=== PATIENT | male | born 1945 | race Caucasian/White ===

== ENCOUNTER 2017-01-23 16:42 | Emergency (ER) | payer MEDICARE, BC, OTHER ==
[2017-01-23] MEDS ORDERED: Sodium Chloride 0.9% 10 ML Syringe FLUSH PRN ×2 (17:19→19:08)
[2017-01-23] MEDS ORDERED: Sodium Chloride 0.9% 1,000 ML IV ONE (17:19)
[2017-01-23] MEDS ORDERED: HYDROmorphone 0.5 MG/0.5 ML Syringe IVPUSH ONE (17:20)
[2017-01-23] MEDS ORDERED: Ondansetron 4 MG/2 ML SDV IVPUSH ONE (17:20)
[2017-01-23] MEDS ORDERED: Alum Hydrox/Mag Hydrox/Simeth 30 ML, Lidocaine 2% 15 ML PO ONE ×2 (17:21)
--- NOTE | 2017-01-23 17:27 | EDM.PDOC ---
ED HPI GI/ABDOMINAL - General Chief Complaint: Abdominal Pain Stated Complaint: HEAD PAIN, SORE EYES, ABDOMINAL PAIN Time Seen by Provider: 01/23/17 17:05 Source of Information: Reports: Patient History Limitations: Reports: No limitations - History of Present Illness INITIAL COMMENTS - FREE TEXT/NARRATIVE: Patient is a 71-year-old male who presents to the ED complaining of abdominal pain that started many months ago. States pain is described as a sharp sensation located to the periumbilical region that is constant with no radiation. Pain at its peak is a 9/10. Pain has been constant for quite some time with unclear etiology. He has been evaluated by his primary care provider and had a CT of the abdomen obtained. There were no abnormal findings present. He has had 2 episodes of emesis with no blood. He denies any nausea. Denies acid reflux. Denies any pain with urination. States he does have pain after having a bowel movement lasting approximately 2 hours afterwards. Bowel pattern has been normal, soft, formed, with no abnormal findings. Denies eating questional or bad food or recent out of country travel. Patient states he is a alcoholic and drinks 1 pint of whiskey a day. States last drink was yesterday. He denies any history of pancreatitis. In addition complains of a mild headache located to the frontal aspect of his head with no vision changes. Rated 5/10 bilaterally described as a throbbing sensation with no radiation. Does not consider it to be worse headache of his life. He's had no weakness, numbness or tingling, fever/chills, loss of vision , or recent head trauma. Again this is a chronic issue that has slightly worsened. Past medical history of coronary artery disease, stent placement, triple coronary artery bypass 1 year ago. HTN. GERD. He is an alcoholic and has not received inpatient treatment. Again he drinks approximately 1 pint of whiskey a day. He has no history for pancreatitis. Current Medications: Enalapril Maleate 10 mg PO DAILY FA/Lycopene/Lut/MV,Ca,Iron,Min [Centrum] 1 tab PO DAILY LORazepam [Ativan] 1 mg PO ASDIRECTED PRN Meloxicam [Mobic] 15 mg PO DAILY #10 tab Metoprolol Tartrate [Lopressor] 50 mg PO BID ] Nitroglycerin [Nitrostat] 0.4 mg PO ASDIRECTED PRN Pantoprazole [ProTONIX] 40 mg PO DAILY Simvastatin [Zocor] 40 mg PO BEDTIME Sucralfate [Carafate] 1 gm PO BID amLODIPine [Norvasc] 10 mg PO DAILY Aspirin [Nata Chewable Aspirin] 81 mg PO DAILY Timing/Duration: Reports: Constant, Waxing/waning Location: periumbilical Quality: Reports: ache Severity: moderate Worsens with: Reports: palpation Context: Denies: sick contact, bad/questionable food, out of country travel, recent surgery, recent trauma, lifting, activity/exercise Associated Symptoms: Reports: loss of appetite. Denies: chest pain, back pain, testicular pain, groin pain, shoulder pain, constipation, diarrhea, bloody stools, fever/chills, malaise, nausea/vomiting Treatments PATIENT ACCOUNTS SPECIALIST: Reports: Other (see below) (None stated) - Related Data Allergies/ADRs: Allergies Allergy/AdvReac Type Severity Reaction Status Date / Time No Known Allergies Allergy Verified 01/23/17 16:56 Home Meds: Home Meds Enalapril Maleate 10 mg PO DAILY 06/21/14 [History] FA/Lycopene/Lut/MV,Ca,Iron,Min [Centrum] 1 tab PO DAILY 06/21/14 [History] LORazepam [Ativan] 1 mg PO ASDIRECTED PRN 06/21/14 [History] Meloxicam [Mobic] 15 mg PO DAILY #10 tab 06/21/14 [Rx] Metoprolol Tartrate [Lopressor] 50 mg PO BID 06/21/14 [History] Nitroglycerin [Nitrostat] 0.4 mg PO ASDIRECTED PRN 06/21/14 [History] Pantoprazole [ProTONIX] 40 mg PO DAILY 06/21/14 [History] Simvastatin [Zocor] 40 mg PO BEDTIME 06/21/14 [History] Sucralfate [Carafate] 1 gm PO BID 06/21/14 [History] amLODIPine [Norvasc] 10 mg PO DAILY 06/21/14 [History] Aspirin [Nata Chewable Aspirin] 81 mg PO DAILY 11/16/15 [History] Past Medical History Cardiovascular History: Reports: Bypass, Hypertension, Stents Other Cardiovascular History: Oct 15, 2012 Gastrointestinal History: Reports: GERD Musculoskeletal History: Reports: Arthritis Psychiatric History: Reports: Addiction Social & Family History - Family History Family Medical History: Noncontributory - Tobacco Use Smoking Status *Q: Former Smoker Years of Tobacco use: 28 Packs/Tins Daily: 1.5 Used Tobacco, but Quit: Yes Month Tobacco Last Used: 09/1991 - Caffeine Use Caffeine Use: Reports: Coffee - Alcohol Use Days Per Week of Alcohol Use: 7 Number of Drinks Per Day: 4 Total Drinks Per Week: 28 - Recreational Drug Use Recreational Drug Use: No ED ROS GENERAL - Review of Systems Review Of Systems: See Below Constitutional: Denies: fever, chills, decreased appetite Respiratory: Denies: Shortness of Breath, Cough, Sputum Cardiovascular: Denies: Chest pain, Lightheadedness, Palpitations, Syncope GI/Abdominal: Reports: Abdominal pain. Denies: Black stool, Bloody stool, Constipation, Diarrhea, Distension, Hematemesis, Hematochezia, Melena, Nausea : Denies: dysuria, frequency Musculoskeletal: Reports: back pain Neurological: Reports: No Symptoms ED EXAM, GI/ABD - Physical Exam Exam: See Below Exam Limited By: No limitations General Appearance: alert, WD/WN, anxious Eyes: bilateral: normal appearance Ears: hearing grossly normal Throat/Mouth: Normal inspection, Normal oropharynx, Normal voice, No airway compromise Neck: normal inspection, supple. No: lymphadenopathy (L), lymphadenopathy (R) Respiratory/Chest: no respiratory distress, lungs clear, normal breath sounds, no accessory muscle use, chest non-tender Cardiovascular: normal peripheral pulses, regular rate, rhythm, no murmur, other (negative claudication) GI/Abdominal: normal bowel sounds, soft, no organomegaly, no distention, tenderness (mild periumbilical area). No: McBurney's sign, Cervantes's sign Back Exam: normal inspection. No: CVA tenderness (L), CVA tenderness (R) Extremities: No: leg pain Neurological: alert, oriented, CN II-XII intact, normal cognition, no motor/ sensory deficits Psychiatric: normal affect, normal mood Skin Exam: Warm, Dry, Intact, Normal color Course - Vital Signs Last Recorded V/S: Last Vital Signs Temp 97.5 F 01/23/17 17:03 Pulse 80 01/23/17 20:56 Resp 16 01/23/17 20:56 BP 130/71 01/23/17 20:56 Pulse Ox 95 01/23/17 20:56 - Orders/Labs/Meds Orders: Active Orders 24 hr Category Date Time Status Peripheral IV Care [RC] . DIRECTED Care 01/23/17 17:19 Active Abdomen Pelvis w Cont [CT] Stat Exams 01/23/17 17:19 Taken Peripheral IV Insertion Adult [OM.PC] Stat Oth 01/23/17 17:19 Ordered Labs: Laboratory Tests 01/23/17 01/23/17 01/23/17 Range/Units 17:47 17:55 17:55 WBC 5.23 (4.23-9.07) K/mm3 RBC 4.25 L (4.63-6.08) M/mm3 Hgb 14.3 (13.7-17.5) gm/L Hct 42.4 (40.1-51.0) % MCV 99.8 H (79.0-92.2) fl MCH 33.6 H (25.7-32.2) pg MCHC 33.7 (32.2-35.5) g/dl RDW Std Deviation 43.2 (35.1-43.9) fL Plt Count 170 (163-337) K/mm3 MPV 10.1 (9.4-12.3) fl Neut % (Auto) 45.6 (34.0-67.9) % Lymph % (Auto) 33.5 (21.8-53.1) % [place] % (Auto) 17.6 H (5.3-12.2) % Eos % (Auto) 2.9 (0.8-7.0) Baso % (Auto) 0.4 (0.1-1.2) % Neut # (Auto) 2.39 (1.78-5.38) K/mm3 Lymph # (Auto) 1.75 (1.32-3.57) K/mm3 [place] # (Auto) 0.92 H (0.30-0.82) K/mm3 Eos # (Auto) 0.15 (0.04-0.54) K/mm3 Baso # (Auto) 0.02 (0.01-0.08) K/mm3 Manual Slide Review Abnormal smear Sodium 141 (136-145) mEq/L Potassium 3.7 (3.5-5.1) mEq/L Chloride 104 (98-107) mEq/L Carbon Dioxide 25 (21-32) mEq/L Anion Gap 15.7 H (5-15) BUN 14 (7-18) mg/dL Creatinine 1.2 (0.7-1.3) mg/dL Est Cr Clr Drug Dosing 59.14 mL/min Estimated GFR (MDRD) 60 (>60) mL/min BUN/Creatinine Ratio 11.7 L (14-18) Glucose 68 L (80-115) mg/dL Calcium 9.0 (8.5-10.1) mg/dL Total Bilirubin 0.7 (0.2-1.0) mg/dL AST 60 H (15-37) U/L ALT 51 (16-63) U/L Alkaline Phosphatase 84 (46-116) U/L C-Reactive Protein 0.3 (<1.0) mg/dL Total Protein 7.6 (6.4-8.2) g/dl Albumin 4.1 (3.4-5.0) g/dl Globulin 3.5 gm/dL Albumin/Globulin Ratio 1.2 (1-2) Lipase 285 (73-393) U/L Urine Color Yellow (Yellow) Urine Appearance Slt cloudy H (Clear) Urine pH 7.0 (5.0-8.0) Ur Specific [place] 1.020 (1.005-1.030) Urine Protein Negative (Negative) Urine Glucose (UA) Negative (Negative) Urine Ketones 1+ H (Negative) Urine Occult Blood Negative (Negative) Urine Nitrite Negative (Negative) Urine Bilirubin Negative (Negative) Urine Urobilinogen 0.2 (0.2-1.0) Ur Leukocyte Esterase Negative (Negative) Urine RBC Not seen (0-5) /hpf Urine WBC 0-5 (0-5) /hpf Ur Epithelial Cells 0-5 (0-5) /hpf Urine Bacteria Rare (FEW) /hpf Hyaline Casts 0-5 (0-5) /lpf Urine Mucus Few (FEW) /hpf Ethyl Alcohol 0.03 (0.00) gm% Meds: Medications Discontinued Medications Generic Name Dose Route Start Last Admin Trade Name Freq PRN Reason Stop Dose Admin Al Hydroxide/Mg Hydroxide 30 0 ml 01/23/17 17:21 01/23/17 18:04 ml/ Lidocaine HCl 15 ml PO 01/23/17 17:22 45 ml ONETIME ONE Administration Diatrizoate Meglum/Diatrizoate Sod 90 ml 01/23/17 19:08 01/23/17 19:26 Gastrografin 37% PO 01/23/17 19:09 90 ml ONETIME ONE Administration Hydromorphone HCl 0.25 mg 01/23/17 17:20 01/23/17 18:02 Dilaudid IVPUSH 01/23/17 17:21 0.25 mg ONETIME ONE Administration Sodium Chloride 1,000 mls @ 125 mls/hr 01/23/17 17:19 01/23/17 17:59 Normal Saline IV 01/24/17 01:18 125 mls/hr ONETIME ONE Administration Iopamidol 125 ml 01/23/17 19:08 01/23/17 19:27 Isovue-300 (61%) IVPUSH 01/23/17 19:09 125 ml ONETIME ONE Administration Ondansetron HCl 4 mg 01/23/17 17:20 01/23/17 18:00 Zofran IVPUSH 01/23/17 17:21 4 mg ONETIME ONE Administration Ondansetron HCl Confirm 01/23/17 17:58 01/23/17 18:15 Zofran Administered 01/23/17 17:59 Not Given Dose 4 mg .ROUTE .STK-MED ONE Sodium Chloride 10 ml 01/23/17 17:19 01/23/17 18:06 Saline Flush FLUSH 10 ml ASDIRECTED PRN Administration Keep Vein Open Sodium Chloride 10 ml 01/23/17 19:08 01/23/17 19:27 Saline Flush FLUSH 10 ml ONETIME PRN Administration IV FLUSH - Re-Assessments/Exams Free Text/Narrative Re-Assessment/Exam: Order peripheral IV with normal saline, Dilaudid 0.25 mg IVP, Zofran 4 mg IVP, CBC, chem 14, CRP, EtOH, lipase, UA, abdominal CT with oral and IV contrast, and GI cocktail. 01/23/17 18:34 Labs reviewed: CBC essentially normal. Sodium 141, potassium 3.7 , AG 15.7 glucose 60, AST 60, lipase 285, UA negative for infection. Serum EtOH is 0.03. 01/23/17 20:15 CT of the abdomen and pelvis impression: There is severe fatty liver replacement. 01/23/17 20:[address] abdomen and pelvis with contrast to patient. He is aware he is severe fatty liver replacement. This is secondary to chronic alcohol consumption. Patient reiterates he does not feel well and does not want to go home. Patient is pointing to stomach complaining of worsening pain. Pain has been constant for many months. Only known aggravating factor is palpation. No changes noted with eating. Patient did not have any relief with Dilaudid and GI cocktail. Patient's also had a colonoscopy one year ago for abdominal pain with no abnormal findings. Discussed with him labs and a CT study did not show any acute findings. Thus will have the patient follow up with his primary care provider for further evaluation. Departure - Departure Time of Disposition: 20:36 Disposition: Home, Self-Care 01 Condition: good Clinical Impression: Alcoholism /alcohol abuse Abdominal pain Qualifiers: Abdominal location: periumbilical Qualified Code(s): R10.33 - Periumbilical pain Instructions: Abdominal Pain, Adult, [id number], Alcohol Abuse and Nutrition Referrals: Gurdeep Valadez Jr, MD [Primary Care Provider] - Forms: ED Department Discharge Additional Instructions: As discussed CT of the abdomen and pelvis do not reveal any acute findings. Lab work also did not reveal any concerning findings as well. Will have you see your primary care provider in the next 2 days to 3 days for reevaluation. Quit drinking. Push the fluids. Ensure adequate rest. Eat three balance meals daily. Return to the E.D. for any new or worsening symptoms. - My Orders Last 24 Hours: My Active Orders 01/23/17 17:19 Peripheral IV Care [RC] . DIRECTED Abdomen Pelvis w Cont [CT] Stat Peripheral IV Insertion Adult [OM.PC] Stat - Assessment/Plan Last 24 Hours: My Active Orders 01/23/17 17:19 Peripheral IV Care [RC] . DIRECTED Abdomen Pelvis w Cont [CT] Stat Peripheral IV Insertion Adult [OM.PC] Stat
[2017-01-23] MEDS ORDERED: Ondansetron 4 MG/2 ML SDV ONE (17:58)
[2017-01-23] MEDS ORDERED: Diatrizoate Meglumine/Diatrizoate Sodium 37% 120 ML Bottle PO ONE (19:08)
[2017-01-23] MEDS ORDERED: Iopamidol 612 MG/ML 150 ML Bottle IVPUSH ONE (19:08)
[2017-01-23 20:57] VITALS: BP 130/71
--- NOTE | 2017-01-24 10:04 | CT ---
CT abdomen and pelvis Technique: Multiple axial sections were obtained from above the dome of the diaphragm inferiorly through the pubic symphysis. Intravenous and oral contrast was utilized. Delayed images were obtained through the bladder. Comparison: No previous CT exam, previous right upper quadrant abdominal ultrasound of 10/19/11 is available. Findings: Visualized lung bases show nothing acute. Liver shows diffuse fatty infiltration. Adrenal glands show no nodule. Kidneys show symmetric contrast enhancement without hydronephrosis or mass. Spleen size appears within normal limits. Pancreas is within normal limits. Gallbladder shows no calcified gallstones. Aorta shows atherosclerotic change which continues into the iliac vessels. No aneurysm is seen. No retroperitoneal adenopathy or mesenteric abnormalities are seen. Numerous diverticuli seen within the sigmoid colon without diverticulitis. Delayed images show contrast within the distal ureters and within the bladder. Bone window settings were reviewed which show scattered degenerative changes throughout the spine with disc space narrowing, vacuum phenomena and scattered endplate osteophytes. Impression: 1. Diffuse fatty infiltration within the liver. 2. Other incidental findings. Nothing acute is identified on CT study of the abdomen and pelvis. Diagnostic code #2 I agree with preliminary report issued by [facility] (report finalized on 01/23/17, 8:54 PM Central Time)
== END 2017-01-23 20:45 | disposition home or self-care (01) ==
LOC: JD.ED 16:42
DX: R10.33 Periumbilical pain (principal); F10.20 Alcohol dependence, uncomplicated; I25.118 Atherosclerotic heart disease of native coronary artery with other forms of angina pectoris; I10 Essential (primary) hypertension; K21.9 Gastro-esophageal reflux disease without esophagitis; Z95.5 Presence of coronary angioplasty implant and graft; Z95.1 Presence of aortocoronary bypass graft; Z79.899 Other long term (current) drug therapy; Z87.891 Personal history of nicotine dependence
CPT/HCPCS: 36415; 74177; 80053; 81001; 83690; 85025; 86140; 96361; 96374; 96375; 99284; A9270; G0480; J1170; J2405; J7040; J7050; Q9963; Q9967

== ENCOUNTER 2017-04-30 07:26 | Emergency (ER) | payer MEDICARE, BC ==
[2017-04-30] MEDS ORDERED: Ondansetron 4 MG/2 ML SDV IVPUSH ONE (07:49)
[2017-04-30] MEDS ORDERED: fentaNYL 100 MCG/2 ML SDV IVPUSH ONE (07:49)
--- NOTE | 2017-04-30 07:53 | EDM.PDOC ---
ED HPI GENERAL MEDICAL PROBLEM - General Chief Complaint: Chest Pain Stated Complaint: CHEST PAIN Time Seen by Provider: 04/30/17 07:48 Source of Information: Reports: Patient History Limitations: Reports: No Limitations - History of Present Illness INITIAL COMMENTS - FREE TEXT/NARRATIVE: 71-year-old male presents the ED for evaluation of right anterior chest pain. States came on a few hours ago and is described as a pressure discomfort versus sharp and stabbing. 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 He does not feel any worse as far shortness of breath. Denies cough fever chills nausea or vomiting. O2 sats on room air are 96%. He is mildly hypertensive and appears quite anxious at initial time of visit. He reports he did not sleep all night suspected did not provide really an explanation as to why not. Onset: Today Onset Date: 04/30/17 Duration: Hour(s): Location: Reports: Chest (Right precordial chest.) Quality: Reports: Ache, Pressure Severity: Moderate Improves with: Reports: None Worsens with: Reports: None Context: Denies: Activity, Exercise, Lifting, Sick Contact, Trauma, Other Associated Symptoms: Reports: Chest Pain. Denies: No Other Symptoms, Confusion (See history present illness), Cough, cough w sputum, Diaphoresis, Fever/Chills , Headaches, Loss of Appetite, Malaise, Nausea/Vomiting, Rash, Seizure, Shortness of Breath, Syncope Chest Pain Score (Numeric/FACES): 2 - Related Data Allergies Allergy/AdvReac Type Severity Reaction Status Date / Time No Known Allergies Allergy Verified 04/30/17 07:36 Home Meds: Home Meds Enalapril Maleate 10 mg PO DAILY 06/21/14 [History] FA/Lycopene/Lut/MV,Ca,Iron,Min [Centrum] 1 tab PO DAILY 06/21/14 [History] LORazepam [Ativan] 1 mg PO ASDIRECTED PRN 06/21/14 [History] Meloxicam [Mobic] 15 mg PO DAILY #10 tab 06/21/14 [Rx] Metoprolol Tartrate [Lopressor] 50 mg PO BID 06/21/14 [History] Nitroglycerin [Nitrostat] 0.4 mg PO ASDIRECTED PRN 06/21/14 [History] Pantoprazole [ProTONIX] 40 mg PO DAILY 06/21/14 [History] Simvastatin [Zocor] 40 mg PO BEDTIME 06/21/14 [History] Sucralfate [Carafate] 1 gm PO BID 06/21/14 [History] amLODIPine [Norvasc] 10 mg PO DAILY 06/21/14 [History] Aspirin [Nata Chewable Aspirin] 81 mg PO DAILY 11/16/15 [History] Gluc Ochoa/Chondro Ochoa A/Vit C/Mn [Glucosamine-Chondroitin Cap] 1 tab PO DAILY 04/30 [History] Past Medical History HEENT History: Reports: Other (See Below) Other HEENT History: dry eyes Cardiovascular History: Reports: Bypass, Hypertension, [place], Stents Other Cardiovascular History: Oct 15, 2012 Gastrointestinal History: Reports: GERD Musculoskeletal History: Reports: Arthritis Psychiatric History: Reports: Addiction Social & Family History - Family History Family Medical History: Noncontributory - Tobacco Use Smoking Status *Q: Former Smoker Years of Tobacco use: 28 Packs/Tins Daily: 1.5 Used Tobacco, but Quit: Yes Month Tobacco Last Used: 25 years ago - Caffeine Use Caffeine Use: Reports: Soda - Alcohol Use Days Per Week of Alcohol Use: 7 Number of Drinks Per Day: 4 Total Drinks Per Week: 28 - Recreational Drug Use Recreational Drug Use: No - Living Situation & Occupation Living situation: Reports: Occupation: Employed ED ROS GENERAL - Review of Systems Review Of Systems: See Below Constitutional: Denies: Fever, Chills, Malaise, Weakness, Fatigue, Decreased Appetite, Weight Loss HEENT: Reports: No Symptoms Respiratory: Reports: No Symptoms Cardiovascular: Reports: Chest Pain. Denies: Claudication, Dyspnea on Exertion , Edema, Lightheadedness, Orthopnea, Palpitations, PND Endocrine: Reports: No Symptoms GI/Abdominal: Reports: Abdominal Pain (Patient complains of midline abdominal pain after having a bowel movement usually last about 2 hours after the passage of a normal formed stool.) : Reports: No Symptoms Musculoskeletal: Reports: No Symptoms Skin: Reports: No Symptoms Neurological: Reports: No Symptoms ED EXAM, GENERAL - Physical Exam Exam: See Below (Patient complains of midline abdominal pain after having a bowel movement usually last about 2 hours after the passage of a normal formed stool. Unable to explain this.) Exam Limited By: No Limitations General Appearance: Alert, WD/WN, No Apparent Distress, Anxious, Mild Distress Eye Exam: Bilateral Eye: Normal Inspection Head: Atraumatic, Normocephalic Neck: Normal Inspection, Supple, Non-Tender, Full Range of Motion. No: Carotid Bruit, Lymphadenopathy (L), Lymphadenopathy (R) Respiratory/Chest: No Respiratory Distress, Lungs Clear, Normal Breath Sounds, No Accessory Muscle Use Cardiovascular: Normal Peripheral Pulses, Regular Rate, Rhythm, No Edema, No Murmur GI/Abdominal: Normal Bowel Sounds, Soft, Non-Tender, No Distention, Other (No obvious umbilical hernia on palpation.) Extremities: Normal Inspection, Normal Range of Motion, Non-Tender, No Pedal Edema, Normal Capillary Refill Neurological: Alert, Oriented, CN II-XII Intact, Normal Cognition, Normal Gait Psychiatric: Normal Affect, Normal Mood Skin Exam: Warm, Dry, Intact, Normal Color, No Rash Course - Vital Signs Last Recorded V/S: Last Vital Signs Temp 36.4 C 04/30/17 07:31 Pulse 72 04/30/17 07:31 Resp 16 04/30/17 07:31 BP 141/89 H 04/30/17 07:31 Pulse Ox 96 04/30/17 07:31 - Orders/Labs/Meds Orders: Active Orders 24 hr Category Date Time Status EKG Documentation Completion [RC] STAT Care 04/30/17 07:50 Active Sodium Chloride 0.9% [Normal Saline] 1,000 ml Med 04/30/17 08:00 Active IV ASDIRECTED Medication Orders Sodium Chloride (Normal Saline) 1,000 mls @ 100 mls/hr IV ASDIRECTED RACHAEL Last Admin: 04/30/17 08:15 Dose: 100 mls/hr Labs: Laboratory Tests 04/30/17 04/30/17 04/30/17 Range/Units 07:50 07:50 07:50 WBC 4.51 (4.23-9.07) K/mm3 RBC 4.46 L (4.63-6.08) M/mm3 Hgb 15.2 (13.7-17.5) gm/L Hct 44.6 (40.1-51.0) % MCV 100.0 H (79.0-92.2) fl MCH 34.1 H (25.7-32.2) pg MCHC 34.1 (32.2-35.5) g/dl RDW Std Deviation 44.1 H (35.1-43.9) fL Plt Count 156 L (163-337) K/mm3 MPV 10.0 (9.4-12.3) fl Neutrophils % (Manual) 63 H (40-60) % Band Neutrophils % 0 (0-10) % Lymphocytes % (Manual) 30 (20-40) % Atypical Lymphs % 0 % Monocytes % (Manual) 6 (2-10) % Eosinophils % (Manual) 1 (0.8-7.0) % Basophils % (Manual) 0 L (0.2-1.2) Platelet Estimate Adequate RBC Morph Comment Normal PT 10.1 (8.0-13.0) SECONDS INR 0.93 D-Dimer, Quantitative (0.19-0.59) mg/L Sodium 141 (136-145) mEq/L Potassium 4.2 (3.5-5.1) mEq/L Chloride 102 (98-107) mEq/L Carbon Dioxide 25 (21-32) mEq/L Anion Gap 18.2 H (5-15) BUN 11 (7-18) mg/dL Creatinine 1.0 (0.7-1.3) mg/dL Est Cr Clr Drug Dosing TNP Estimated GFR (MDRD) > 60 (>60) mL/min BUN/Creatinine Ratio 11.0 L (14-18) Glucose 105 (80-115) mg/dL Calcium 9.2 (8.5-10.1) mg/dL Total Bilirubin 1.1 H (0.2-1.0) mg/dL AST 102 H (15-37) U/L ALT 83 H (16-63) U/L Alkaline Phosphatase 88 (46-116) U/L CK-MB (CK-2) 1.0 (0-3.6) ng/ml Troponin I < 0.017 (0.00-0.056) ng/mL C-Reactive Protein < 0.2 (<1.0) mg/dL Total Protein 7.7 (6.4-8.2) g/dl Albumin 4.3 (3.4-5.0) g/dl Globulin 3.4 gm/dL Albumin/Globulin Ratio 1.3 (1-2) /08/17 Range/Units 07:50 WBC (4.23-9.07) K/mm3 RBC (4.63-6.08) M/mm3 Hgb (13.7-17.5) gm/L Hct (40.1-51.0) % MCV (79.0-92.2) fl MCH (25.7-32.2) pg MCHC (32.2-35.5) g/dl RDW Std Deviation (35.1-43.9) fL Plt Count (163-337) K/mm3 MPV (9.4-12.3) fl Neutrophils % (Manual) (40-60) % Band Neutrophils % (0-10) % Lymphocytes % (Manual) (20-40) % Atypical Lymphs % % Monocytes % (Manual) (2-10) % Eosinophils % (Manual) (0.8-7.0) % Basophils % (Manual) (0.2-1.2) Platelet Estimate RBC Morph Comment PT (8.0-13.0) SECONDS INR D-Dimer, Quantitative 1.09 H (0.19-0.59) mg/L Sodium (136-145) mEq/L Potassium (3.5-5.1) mEq/L Chloride (98-107) mEq/L Carbon Dioxide (21-32) mEq/L Anion Gap (5-15) BUN (7-18) mg/dL Creatinine (0.7-1.3) mg/dL Est Cr Clr Drug Dosing Estimated GFR (MDRD) (>60) mL/min BUN/Creatinine Ratio (14-18) Glucose (80-115) mg/dL Calcium (8.5-10.1) mg/dL Total Bilirubin (0.2-1.0) mg/dL AST (15-37) U/L ALT (16-63) U/L Alkaline Phosphatase (46-116) U/L CK-MB (CK-2) (0-3.6) ng/ml Troponin I (0.00-0.056) ng/mL C-Reactive Protein (<1.0) mg/dL Total Protein (6.4-8.2) g/dl Albumin (3.4-5.0) g/dl Globulin gm/dL Albumin/Globulin Ratio (1-2) Meds: Medications Generic Name Dose Route Start Last Admin Trade Name Freq PRN Reason Stop Dose Admin Sodium Chloride 1,000 mls @ 100 mls/hr 04/30/17 08:00 04/30/17 08:15 Normal Saline IV 100 mls/hr ASDIRECTED RACHAEL Administration Discontinued Medications Generic Name Dose Route Start Last Admin Trade Name Teja PRN Reason Stop Dose Admin Fentanyl 50 mcg 04/30/17 07:49 Sublimaze IVPUSH 04/30/17 07:50 ONETIME ONE Ondansetron HCl 4 mg 04/30/17 07:49 Zofran IVPUSH 04/30/17 07:50 ONETIME ONE - Radiology Interpretation Free Text/Narrative:: 71-year-old male presents the ED with diffuse right. Anterior chest pain which she described as slight pressure discomfort. Patient has left precordial chest pain all the time since he had open heart surgery with use of internal mammary artery for grafting. However he doesn't experience right-sided chest pain very often. Exam is otherwise normal. Sinus rhythm normal vitals lungs are clear. Plan ECG done by triage nurse is unchanged from one done in October 2015. Patient had a Cardiolite stress test in January 2016 and Anaid can stress test at the same time which did not show any signs of reversible ischemia. Plan IV normal saline at 100 mils per hour. Given phenyl 50 g IV with Zofran 4 mg IV for pain relief. Routine labs to be collected including cardiac markers and a d- dimer and CRP. - Re-Assessments/Exams Free Text/Narrative Re-Assessment/Exam: 04/30/17 08:31 chest x-ray reveals hyperinflated lung mccartney but visualized lungs are clear cardiac silhouette is normal. 04/30/17 10:08 labs reveal a normal white count at 4.51 with 63% neutrophils and no bands. Hemoglobin is 15.2. Platelet is 156,000. Note the elevated MCV at 100 suggestive of probable alcohol use. Coags are normal. D-dimer is mildly elevated at 1.09. Sodium 141 potassium 4.2 and a gap is elevated 18.2. B1 is 11 creatinine is 1.0. He has a metabolic acidosis which I believe is likely alcohol -induced ketosis. Bilirubin is 1.1 AST is 1028 ELT elevated at 83. CRP is less than 0.2. We did review a CT of the abdomen and pelvis that was done several months ago. It does show a small fat-containing umbilical hernia which may explain his abdominal pain after having bowel movements. No further treatment is required at this time. His right-sided chest pain appears to be benign in origin. Departure - Departure Time of Disposition: 10:09 Disposition: Home, Self-Care 01 Condition: Fair Clinical Impression: Chest wall pain, Non-cardiac chest pain, Umbilical hernia Instructions: Chest Wall Pain, [id number] Referrals: Gurdeep Valadez Jr, MD [Primary Care Provider] - Forms: ED Department Discharge Additional Instructions: Evaluation in the emergency room today in regards to development of right-sided chest pain overnight. 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 Chest x-ray was within normal limits. Lab tests revealed no evidence of heart related illness. You're little bit on the dehydrated side and I would suggest extra fluids today such as Gatorade or Powerade to provide rehydration. As to pain you're experiencing umbilicus after bowel movement it appears on CT scan that you do have a small fat-containing umbilical hernia. If this continues to bother you then this could be repaired surgically. - My Orders Last 24 Hours: My Active Orders 04/30/17 07:50 EKG Documentation Completion [RC] STAT 04/30/17 08:00 Sodium Chloride 0.9% [Normal Saline] 1,000 ml IV ASDIRECTED - Assessment/Plan Last 24 Hours: My Active Orders 04/30/17 07:50 EKG Documentation Completion [RC] STAT 04/30/17 08:00 Sodium Chloride 0.9% [Normal Saline] 1,000 ml IV ASDIRECTED
[2017-04-30] MEDS ORDERED: Sodium Chloride 0.9% 1,000 ML IV SCH (08:00)
--- NOTE | 2017-04-30 10:46 | CR ---
Chest: Frontal view of the chest was obtained utilizing portable technique. Comparison: Previous chest x-ray of 11/16/15. Heart size is normal. Mild tortuosity of the thoracic aorta is seen. Lungs are clear. Scoliosis and degenerative change is partially seen within the spine. Previous sternotomy for CABG is seen. Impression: 1. Incidental findings. Nothing acute is identified on portable chest x-ray. Diagnostic code #2
[2017-04-30 18:16] VITALS: BP 125/79
== END 2017-04-30 10:40 | disposition home or self-care (01) ==
LOC: JD.ED 07:26
DX: R07.89 Other chest pain (principal); K42.9 Umbilical hernia without obstruction or gangrene; I10 Essential (primary) hypertension; I25.2 Old myocardial infarction; M19.90 Unspecified osteoarthritis, unspecified site; K21.9 Gastro-esophageal reflux disease without esophagitis; Z95.1 Presence of aortocoronary bypass graft; Z95.5 Presence of coronary angioplasty implant and graft; Z87.891 Personal history of nicotine dependence; Z79.82 Long term (current) use of aspirin; Z79.899 Other long term (current) drug therapy
CPT/HCPCS: 36415; 71010; 80053; 82553; 84484; 85025; 85379; 85610; 86140; 93005; 96360; 96361; 99285; J7040; 99284

== ENCOUNTER 2019-10-11 16:40 | Emergency (ER) | payer MEDICARE, BC ==
[2019-10-11] MEDS ORDERED: Sodium Chloride 0.9% 10 ML Syringe FLUSH PRN (17:01)
[2019-10-11 17:07] VITALS: BP 153/86; PULSE 85
[2019-10-11] MEDS ORDERED: Sodium Chloride 0.9% 1,000 ML IV SCH (17:15)
--- NOTE | 2019-10-11 17:22 | EDM.PDOC ---
ED HPI GENERAL MEDICAL PROBLEM - General Chief Complaint: General Stated Complaint: FELL TWICE/LIGHTHEADED Time Seen by Provider: 10/11/19 16:59 Source of Information: Reports: Patient, RN Notes Reviewed - History of Present Illness INITIAL COMMENTS - FREE TEXT/NARRATIVE: 74-year-old male comes in with left facial contusion, left elbow contusion as post fall yesterday and also today before. He states that he was intoxicated at the time of those falls, does not really remember what happened. Today he is aware that he has extensive bruising of his left face, has discomfort around the left eye and also has swelling and discomfort left elbow. He did have some mild chest discomfort a but no discomfort at this time. He is not short of breath or having any difficulty breathing. He is very mild left frontal headache only. There's been no abdominal pain nausea or vomiting. He drinks whiskey about every day. No alcohol ingestion so far today. 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 Head Pain Score (Numeric/FACES): 6 - Related Data Allergies Allergy/AdvReac Type Severity Reaction Status Date / Time No Known Allergies Allergy Verified 04/30/17 07:36 Home Meds: Home Meds Enalapril Maleate 10 mg PO DAILY 06/21/14 [History] FA/Lycopene/Lut/MV,Ca,Iron,Min [Centrum] 1 tab PO DAILY 06/21/14 [History] LORazepam [Ativan] 1 mg PO ASDIRECTED PRN 06/21/14 [History] Meloxicam [Mobic] 15 mg PO DAILY #10 tab 06/21/14 [Rx] Metoprolol Tartrate [Lopressor] 50 mg PO BID 06/21/14 [History] Nitroglycerin [Nitrostat] 0.4 mg PO ASDIRECTED PRN 06/21/14 [History] Pantoprazole [ProTONIX] 40 mg PO DAILY 06/21/14 [History] Simvastatin [Zocor] 40 mg PO BEDTIME 06/21/14 [History] Sucralfate [Carafate] 1 gm PO BID 06/21/14 [History] amLODIPine [Norvasc] 10 mg PO DAILY 06/21/14 [History] Aspirin [Nata Chewable Aspirin] 81 mg PO DAILY 11/16/15 [History] Gluc Ochoa/Chondro Ochoa A/Vit C/Mn [Glucosamine-Chondroitin Cap] 1 tab PO DAILY 04/30 [History] Past Medical History HEENT History: Reports: Other (See Below) Other HEENT History: dry eyes Cardiovascular History: Reports: Bypass, Hypertension, [place], Stents Other Cardiovascular History: Oct 15, 2012 Gastrointestinal History: Reports: GERD Musculoskeletal History: Reports: Arthritis Psychiatric History: Reports: Addiction Social & Family History - Family History Family Medical History: Noncontributory - Tobacco Use Smoking Status *Q: Former Smoker Used Tobacco, but Quit: Yes Month/Year Tobacco Last Used: 27 - Caffeine Use Caffeine Use: Reports: Coffee - Recreational Drug Use Recreational Drug Use: No - Living Situation & Occupation Living situation: Reports: Occupation: Employed ED ROS GENERAL - Review of Systems Review Of Systems: See Below HEENT: Reports: Other (Left facial pain and bruising). Denies: Throat Pain Respiratory: Denies: Shortness of Breath, Pleuritic Chest Pain Cardiovascular: Denies: Chest Pain GI/Abdominal: Denies: Abdominal Pain, Nausea, Vomiting Musculoskeletal: Reports: Joint Pain (Left elbow) Skin: Reports: Bruising (Left face) Neurological: Reports: Headache (Mild left frontal). Denies: Numbness, Tingling , Trouble Speaking, Weakness ED EXAM, GENERAL - Physical Exam Exam: See Below General Appearance: Alert, No Apparent Distress Ears: Normal External Exam Nose: Normal Inspection Throat/Mouth: Normal Inspection, Normal Oropharynx Head: Facial Swelling (Mild swelling bruising and tenderness around the left eye , very mild left zygomatic tenderness) Respiratory/Chest: No Respiratory Distress, Lungs Clear, Normal Breath Sounds, Chest Non-Tender Cardiovascular: Regular Rate, Rhythm GI/Abdominal: Soft, Non-Tender Back Exam: No: CVA Tenderness (L), CVA Tenderness (R) Extremities: Joint Swelling (There is mild swelling and tenderness of the left elbow medially laterally and posteriorly, mild pain with motion, shoulders, upper and lower extremities otherwise nontender) Neurological: Alert, Oriented, No Motor/Sensory Deficits Skin Exam: Warm, Dry, Normal Color Course - Vital Signs Last Recorded V/S: Last Vital Signs Temp 98.9 F 10/11/19 17:03 Pulse 85 10/11/19 17:03 Resp 20 10/11/19 17:03 BP 153/86 H 10/11/19 17:03 Pulse Ox 94 L 10/11/19 17:03 - Orders/Labs/Meds Orders: Active Orders 24 hr Category Date Time Status Peripheral IV Care [RC] . DIRECTED Care 10/11/19 17:01 Active Sodium Chloride 0.9% [Normal Saline] 1,000 ml Med 10/11/19 17:15 Active IV ONETIME Sodium Chloride 0.9% [Saline Flush] Med 10/11/19 17:01 Active 10 ml FLUSH ASDIRECTED PRN Peripheral IV Insertion Adult [OM.PC] Stat Oth 10/11/19 17:01 Ordered Medication Orders Sodium Chloride (Normal Saline) 1,000 mls @ 999 mls/hr IV ONETIME RACHAEL Last Admin: 10/11/19 17:13 Dose: 999 mls/hr Sodium Chloride (Saline Flush) 10 ml FLUSH ASDIRECTED PRN PRN Reason: Keep Vein Open Last Admin: 10/11/19 17:13 Dose: 10 ml Labs: Laboratory Tests 10/11/19 10/11/19 Range/Units 17:10 17:10 WBC 8.80 (4.23-9.07) K/mm3 RBC 4.00 L (4.63-6.08) M/mm3 Hgb 14.0 (13.7-17.5) gm/dl Hct 41.7 (40.1-51.0) % MCV 104.3 H D (79.0-92.2) fl MCH 35.0 H (25.7-32.2) pg MCHC 33.6 (32.2-35.5) g/dl RDW Std Deviation 44.7 H (35.1-43.9) fL Plt Count 130 L (163-337) K/mm3 MPV 10.5 (9.4-12.3) fl Neut % (Auto) 69.4 H (34.0-67.9) % Lymph % (Auto) 14.1 L (21.8-53.1) % [place] % (Auto) 15.8 H (5.3-12.2) % Eos % (Auto) 0.3 L (0.8-7.0) Baso % (Auto) 0.3 (0.1-1.2) % Neut # (Auto) 6.10 H (1.78-5.38) K/mm3 Lymph # (Auto) 1.24 L (1.32-3.57) K/mm3 [place] # (Auto) 1.39 H (0.30-0.82) K/mm3 Eos # (Auto) 0.03 L (0.04-0.54) K/mm3 Baso # (Auto) 0.03 (0.01-0.08) K/mm3 Manual Slide Review Abnormal smear Sodium 142 (136-145) mEq/L Potassium 3.9 (3.5-5.1) mEq/L Chloride 104 (98-107) mEq/L Carbon Dioxide 24 (21-32) mEq/L Anion Gap 17.9 H (5-15) BUN 14 (7-18) mg/dL Creatinine 1.0 (0.7-1.3) mg/dL Est Cr Clr Drug Dosing 67.93 mL/min Estimated GFR (MDRD) > 60 (>60) mL/min BUN/Creatinine Ratio 14.0 (14-18) Glucose 114 (83-115) mg/dL Calcium 8.7 (8.5-10.1) mg/dL Total Bilirubin 1.2 H (0.2-1.0) mg/dL AST 97 H (15-37) U/L ALT 73 H (16-63) U/L Alkaline Phosphatase 114 (46-116) U/L Total Protein 7.3 (6.4-8.2) g/dl Albumin 3.6 (3.4-5.0) g/dl Globulin 3.7 gm/dL Albumin/Globulin Ratio 1.0 (1-2) Ethyl Alcohol 0.01 (0.00) gm% Meds: Medications Generic Name Dose Route Start Last Admin Trade Name Freq PRN Reason Stop Dose Admin Sodium Chloride 1,000 mls @ 999 mls/hr 10/11/19 17:15 10/11/19 17:13 Normal Saline IV 999 mls/hr ONETIME RACHAEL Administration Sodium Chloride 10 ml 10/11/19 17:01 10/11/19 17:13 Saline Flush FLUSH 10 ml ASDIRECTED PRN Administration Keep Vein Open - Re-Assessments/Exams Free Text/Narrative Re-Assessment/Exam: 10/11/19 19:03 X-rays of left elbow are negative for fracture head CT no acute findings facial CT no acute findings. Departure - Departure Time of Disposition: 19:03 Disposition: Home, Self-Care 01 Condition: Fair Clinical Impression: Fall Qualifiers: Encounter type: initial encounter Qualified Code(s): W19.XXXA - Unspecified fall, initial encounter Facial contusion Qualifiers: Encounter type: initial encounter Qualified Code(s): S00.83XA - Contusion of other part of head, initial encounter - Discharge Information Referrals: Gurdeep Valadez Jr, MD [Primary Care Provider] - Forms: ED Department Discharge, ED Return to Work/School Form Additional Instructions: Ice packs and elevation face and elbow as needed for swelling. Tylenol every 6- 8 hours if needed for pain. See counselor at [facility] if you are interested in any type of alcohol counseling or treatment. Return to ED as needed. Sepsis Event Note - Evaluation Sepsis Screening Result: No Definite Risk - Focused Exam Vital Signs: Vital Signs Temp Pulse Resp BP Pulse Ox 10/11/19 17:03 98.9 F 85 20 153/86 H 94 L Date Exam was Performed: 10/11/19 Time Exam was Performed: 19:07 - My Orders Last 24 Hours: My Active Orders 10/11/19 17:01 Peripheral IV Care [RC] . DIRECTED Sodium Chloride 0.9% [Saline Flush] 10 ml FLUSH ASDIRECTED PRN Peripheral IV Insertion Adult [OM.PC] Stat 10/11/19 17:15 Sodium Chloride 0.9% [Normal Saline] 1,000 ml IV ONETIME - Assessment/Plan Last 24 Hours: My Active Orders 10/11/19 17:01 Peripheral IV Care [RC] . DIRECTED Sodium Chloride 0.9% [Saline Flush] 10 ml FLUSH ASDIRECTED PRN Peripheral IV Insertion Adult [OM.PC] Stat 10/11/19 17:15 Sodium Chloride 0.9% [Normal Saline] 1,000 ml IV ONETIME
--- NOTE | 2019-10-11 18:50 | CT ---
CT facial bones Technique: Multiple axial sections through the facial bones were obtained. Reconstructed coronal and sagittal images were reviewed. Findings: Minimal mucosal thickening is seen inferiorly within the maxillary sinuses. Minimal mucosal thickening is seen within the frontal sinuses. No acute paranasal sinus findings are seen. Mastoid sinuses are clear. Right and left globes are symmetric. Mild soft tissue hematoma is noted within the lateral and superior periorbital region. No acute facial bone fracture is identified. Impression: 1. Small soft tissue hematoma within the lateral and superior left periorbital region is again noted. 2. Minimal sinus findings. 3. No acute facial bone fracture is appreciated. Diagnostic code #2 This report was dictated in [place] Standard Time
--- NOTE | 2019-10-11 18:50 | CR ---
Left elbow: 4 views left elbow were obtained. Comparison: No previous elbow study. Soft tissue swelling is noted. Joint spaces are preserved. No joint effusion is seen. No acute fracture or other bony abnormality is seen. Impression: 1. Soft tissue swelling. 2. Left elbow study is otherwise unremarkable. Diagnostic code #2 This report was dictated in [place] Standard Time
--- NOTE | 2019-10-11 18:50 | CT ---
Head CT Technique: Multiple axial sections through the brain were obtained. Intravenous contrast was not utilized. Comparison: No prior intracranial imaging. Findings: Ventricles along with basal cisterns and sulci over the convexities are mildly prominent. Diminished density is noted within the periventricular and subcortical white matter compatible with small vessel ischemic demyelination change. Atherosclerotic calcification is seen within the vertebral vessels and carotid siphon. Small subcutaneous hematoma is seen within the lateral upper left orbital region Bone window settings were reviewed. Visualized paranasal sinuses show nothing acute. Visualized mastoid sinuses show nothing acute. No acute calvarial abnormality is seen. Impression: 1. Senescent change as noted above. 2. Small soft tissue hematoma as noted above. 3. No acute intracranial abnormality is identified. Diagnostic code #2
== END 2019-10-11 19:15 | disposition home or self-care (01) ==
LOC: JD.ED 16:40
DX: S00.83XA Contusion of other part of head, initial encounter (principal); I10 Essential (primary) hypertension; K21.9 Gastro-esophageal reflux disease without esophagitis; I25.2 Old myocardial infarction; Z79.82 Long term (current) use of aspirin; Z79.899 Other long term (current) drug therapy; Z87.891 Personal history of nicotine dependence; W19.XXXA Unspecified fall, initial encounter
CPT/HCPCS: 36415; 70450; 70486; 73080; 80053; 85025; 96360; 99284; G0480; J7030; 99283

== ENCOUNTER 2020-05-25 05:10 | Emergency (ER) | payer MEDICARE, BC ==
[2020-05-25 05:30] VITALS: BP 124/114; PULSE 86
--- NOTE | 2020-05-25 05:34 | EDM.PDOC ---
ED HPI GENERAL MEDICAL PROBLEM - General Chief Complaint: Lower Extremity Injury/Pain Stated Complaint: knee pain Time Seen by Provider: 05/25/20 05:34 Source of Information: Reports: Patient History Limitations: Reports: No Limitations - History of Present Illness INITIAL COMMENTS - FREE TEXT/NARRATIVE: 74-year-old male presents to the ED for evaluation of increased pain redness and swelling of his right knee. Patient indicates that he got tripped up in his own living room about 8 days ago and fell on all 4 limbs injuring both elbows and both knees. He still able to walk but has a definite limp due to right knee pain. Right knee pain has increased dramatically in the last 48 hours. It is constant throbbing pain and he appreciates increased redness and swelling of the right knee over the last 24 hours. No fever or chills reported. Appetite has been fair. He is on meloxicam 15 mg daily and therefore does not take any NSAIDs for pain. He has been using some Tylenol. He also has significant injury to his left elbow which she cannot see because it is posterior to the elbow. He has had a friend at the workplace bandaged up his left elbow and cleanse the area. He denies hitting his head or losing consciousness. He is not on any blood thinners. Old notes suggest that he has an alcohol dependency problem. No signs of acute alcohol intoxication. Onset: Sudden Onset Date: 05/17/20 Duration: Day(s):, Getting Worse Location: Reports: Lower Extremity, Right (Developing redness and increased pain and swelling right anterior knee. When he fell in his living room 8 days a week or so he injured both elbows and both anterior knees. Has a dressing on his left elbow that his body is doing for him.) Quality: Reports: Ache, Throbbing Severity: Moderate Improves with: Reports: None Worsens with: Reports: Movement (And trying to weight-bear.) Context: Reports: Trauma (Shoulder injury to both anterior knees and both posterior elbows from a fall in his living room approximately 8 days ago.). Denies: Activity, Exercise, Lifting, Sick Contact Associated Symptoms: Reports: Cough, Loss of Appetite (Admits that he does not eat the best.), Rash (Developing redness and increased warmth right anterior knee), Shortness of Breath (Exertion.). Denies: Confusion, Chest Pain, cough w sputum (Chronic mild cough.), Diaphoresis, Fever/Chills, Headaches, Malaise, Nausea/Vomiting Treatments DIRECTOR OF CLINICAL TRIALS: Reports: Acetaminophen. Denies: NSAIDS (Does not take NSAIDs as he is already on meloxicam 15 mg daily.) Right Knee Pain Score (Numeric/FACES): 8 - Related Data Allergies Allergy/AdvReac Type Severity Reaction Status Date / Time No Known Allergies Allergy Verified 05/25/20 05:30 Home Meds: Home Meds Enalapril Maleate 10 mg PO DAILY 06/21/14 [History] FA/Lycopene/Lut/MV,Ca,Iron,Min [Centrum] 1 tab PO DAILY 06/21/14 [History] LORazepam [Ativan] 1 mg PO BID PRN 06/21/14 [History] Meloxicam [Mobic] 15 mg PO DAILY #10 tab 06/21/14 [Rx] Metoprolol Tartrate [Lopressor] 50 mg PO BID 06/21/14 [History] Nitroglycerin [Nitrostat] 0.4 mg PO ASDIRECTED PRN 06/21/14 [History] Pantoprazole [ProTONIX] 40 mg PO DAILY 06/21/14 [History] Simvastatin [Zocor] 40 mg PO BEDTIME 06/21/14 [History] Sucralfate [Carafate] 1 gm PO BID 06/21/14 [History] amLODIPine [Norvasc] 5 mg PO DAILY 06/21/14 [History] Aspirin [Nata Chewable Aspirin] 81 mg PO DAILY 11/16/15 [History] Gluc Ochoa/Chondro Ochoa A/Vit C/Mn [Glucosamine-Chondroitin Cap] 1 tab PO DAILY 04/30/17 [History] Doxycycline [Vibra-Tabs] 100 mg PO Q12HR #20 tab 05/25/20 [Rx] Hyoscyamine Sulfate [Anaspaz] 0.125 mg PO QID PRN 05/25/20 [History] oxyCODONE HCl/Acetaminophen [Percocet 5-325 mg Tablet] 1 - 2 each PO Q4H PRN #24 tablet 05/25/20 [Rx] Past Medical History HEENT History: Reports: Other (See Below) Other HEENT History: dry eyes Cardiovascular History: Reports: Bypass, High Cholesterol, Hypertension, [place], Stents Other Cardiovascular History: Oct 15, 2012 Respiratory History: Reports: COPD Gastrointestinal History: Reports: GERD Musculoskeletal History: Reports: Arthritis Psychiatric History: Reports: Addiction Social & Family History - Family History Family Medical History: Noncontributory - Tobacco Use Smoking Status *Q: Never Smoker - Caffeine Use Caffeine Use: Reports: Coffee - Alcohol Use Days Per Week of Alcohol Use: 7 Number of Drinks Per Day: 10 Total Drinks Per Week: 70 - Recreational Drug Use Recreational Drug Use: No - Living Situation & Occupation Living situation: Reports: Occupation: Employed Review of Systems - Review of Systems Review Of Systems: See Below Constitutional: Reports: Weakness. Denies: Chills, Diaphoresis, Fever Eyes: Reports: Decreased Acuity (Has chronic eye disease.) Ears: Reports: No Symptoms Nose: Reports: No Symptoms Mouth/Throat: Reports: No Symptoms Respiratory: Reports: Shortness of Breath, Cough. Denies: Wheezing, Pleuritic Chest Pain, Sputum, Hemoptysis Cardiovascular: Denies: Chest Pain, Edema, Irregular Heart Rate GI/Abdominal: Reports: No Symptoms Genitourinary: Reports: Other (Urinary frequency. Nocturia usually x2.) Musculoskeletal: Reports: Joint Pain (Holders neck low back knees and hips.), Other (Recent illness involves a fall at home approximately 8 days ago with injury to both posterior elbows and both anterior knees.) Skin: Reports: Bruising (Appreciates that he bruises fairly easily.) Neurological: Reports: No Symptoms Psychiatric: Reports: No Symptoms ED EXAM, GENERAL - Physical Exam Exam: See Below Exam Limited By: No Limitations General Appearance: Alert, WD/WN, Mild Distress, Other (Temperature is 37.1 with a heart rate of 86 and sinus. Respiratory to 16 with O2 sats of 92% room air. BP is 124/103) Eye Exam: Bilateral Eye: Normal Inspection (No scleral icterus or blepharal pallor.), PERRL Throat/Mouth: Other (His tongue is mildly dry and coated. No signs of oropharyngeal infection.) Head: Atraumatic, Other Neck: Normal Inspection, Limited Range of Motion, Tender Lateral (Lateral aspect of the neck bilaterally due to arthritis change.). No: Carotid Bruit, Ly mphadenopathy (L) (Hepatus on lateral rotation.), Lymphadenopathy (R) Respiratory/Chest: Decreased Breath Sounds (Creased air entry to the lower 20% lung mccartney bilaterally compatible with COPD.). No: Rales, Rhonchi, Wheezing Cardiovascular: Regular Rate, Rhythm, No Edema, No Gallop, No Murmur, No Rub, Other (Midline sternotomy from previous bypass surgery.). No: Normal Peripheral Pulses Peripheral Pulses: 1+: Posterior Tibial (L), Posterior Tibial (R), Dorsalis Pedis (L), Dorsalis Pedis (R), 2+: Carotid (L), Carotid (R) GI/Abdominal: Normal Bowel Sounds, Soft, Non-Tender, No Organomegaly, No Mass, Pelvis Stable Back Exam: Decreased Range of Motion, Paraspinal Tenderness (Mild on both sides of the lumbar spine.) Extremities: Other (Patient has a deep abrasion to the posterior left elbow above the olecranon process with loss of skin approximately 2 cm x 1.5 cm. The wound is clean and not infected at this time. He has healing scabs on his right olecranon process available. Similarly to the left anterior knee. On the right knee he has significant swelling with palpable hematoma in the right knee joint. Prepatellar bursa is significantly warm to palpation and swollen. There is diffuse erythema and increased warmth around the knee particular lateral aspect of the knee joint compatible with developing cellulitis. No purulent drainage appreciated that would benefit from culture at this time.) Neurological: Alert, Oriented, CN II-XII Intact, Normal Cognition. No: Normal Gait (limping significantly from Rt knee pain. ) Psychiatric: Normal Affect Skin Exam: Warm, Dry, Ecchymosis (both posterior elbows and Lt knee over the patella. ), Erythema (Rt anterior knee), Increased Warmth (Rt anterior knee.). No: Intact Course - Vital Signs Last Recorded V/S: Last Vital Signs Temp 37.1 C 05/25/20 05:28 Pulse 86 05/25/20 05:28 Resp 16 05/25/20 05:28 BP 124/114 H 05/25/20 05:28 Pulse Ox 92 L 05/25/20 05:28 - Orders/Labs/Meds Labs: Laboratory Tests 05/25/20 05/25/20 05/25/20 Range/Units 05:50 05:50 05:50 WBC 4.96 (4.23-9.07) K/mm3 RBC 3.90 L (4.63-6.08) M/mm3 Hgb 14.1 (13.7-17.5) gm/dl Hct 40.8 (40.1-51.0) % MCV 104.6 H (79.0-92.2) fl MCH 36.2 H (25.7-32.2) pg MCHC 34.6 (32.2-35.5) g/dl RDW Std Deviation 42.8 (35.1-43.9) fL Plt Count 220 D (163-337) K/mm3 MPV 9.5 (9.4-12.3) fl Neut % (Auto) 49.0 (34.0-67.9) % Lymph % (Auto) 18.8 L (21.8-53.1) % [place] % (Auto) 30.0 H (5.3-12.2) % Eos % (Auto) 1.4 (0.8-7.0) Baso % (Auto) 0.6 (0.1-1.2) % Neut # (Auto) 2.43 (1.78-5.38) K/mm3 Lymph # (Auto) 0.93 L (1.32-3.57) K/mm3 [place] # (Auto) 1.49 H (0.30-0.82) K/mm3 Eos # (Auto) 0.07 (0.04-0.54) K/mm3 Baso # (Auto) 0.03 (0.01-0.08) K/mm3 Manual Slide Review Abnormal smear Sodium 139 (136-145) mEq/L Potassium 4.0 (3.5-5.1) mEq/L Chloride 103 (98-107) mEq/L Carbon Dioxide 27 (21-32) mEq/L Anion Gap 13.0 (5-15) BUN 9 (7-18) mg/dL Creatinine 0.9 (0.7-1.3) mg/dL Est Cr Clr Drug Dosing 70.72 mL/min Estimated GFR (MDRD) > 60 (>60) mL/min BUN/Creatinine Ratio 10.0 L (14-18) Glucose 103 (83-115) mg/dL Calcium 8.9 (8.5-10.1) mg/dL Total Bilirubin 0.6 (0.2-1.0) mg/dL AST 50 H (15-37) U/L ALT 33 (16-63) U/L Alkaline Phosphatase 114 (46-116) U/L C-Reactive Protein 17.4 H* (<1.0) mg/dL NT-Pro-B Natriuret Pep 660 H (0-125) pg/mL Total Protein 6.7 (6.4-8.2) g/dl Albumin 2.7 L (3.4-5.0) g/dl Globulin 4.0 gm/dL Albumin/Globulin Ratio 0.7 L (1-2) Meds: Medications Discontinued Medications Generic Name Dose Route Start Last Admin Trade Name Freq PRN Reason Stop Dose Admin Hydromorphone HCl 0.5 mg 05/25/20 05:43 05/25/20 05:56 Dilaudid IVPUSH 05/25/20 05:44 0.5 mg ONETIME ONE Administration Ceftriaxone Sodium 2 gm/ 100 mls @ 200 mls/hr 05/25/20 05:42 05/25/20 05:56 Sodium Chloride IV 05/25/20 06:11 200 mls/hr ONETIME ONE Administration Ondansetron HCl 4 mg 05/25/20 05:43 05/25/20 05:56 Zofran IVPUSH 05/25/20 05:44 4 mg ONETIME ONE Administration Sodium Chloride 10 ml 05/25/20 05:42 05/25/20 05:52 Saline Flush FLUSH 10 ml ASDIRECTED PRN Administration Keep Vein Open - Radiology Interpretation Free Text/Narrative:: 74-year-old male presents to the ED with acute redness swelling and increased pain in his right anterior knee. Patient reports that he thinks he fell in his living room about 8 to 10 days ago. He states he tripped up and fell on the carpet in the living room on all 4 limbs. He suffered injuries to both posterior elbows and both anterior knees. He states wounds on his right elbow and left knee are healing satisfactorily. He has had the wound on his left elbow dressed by a friend every other day with topical antibiotic therapy to keep it clean. He has lost a fair amount of skin on the posterior aspect of the left elbow. He is appreciate increased pain redness and swelling of his right anterior knee over the last 30 hours or so. Pain is severe enough that he cannot sleep and cannot hardly bear weight. Patient has not sought medical care in regards to these injuries until today. His med list suggest he is on meloxicam 15 mg daily for arthritis in his neck back and knees and hips. He has been taking some Tylenol at home for pain but is not helping. He does not recognize any fever or chills. Appetite remains fair. He has a history of hypertension hypercholesterolemia and coronary artery disease with previous bypass surgery. Patient denies cigarette smoking. Evaluation reveals an active developing cellulitis of his right anterior knee. Deep abrasions to the posterior aspect of the left elbow that require topical antibiotic and dressing change with no active infection appreciated. Plan he will have routine labs collected including a BNP due to O2 sats of only 92% on room air. Plan will be to give him Rocephin 2 g intravenously. Pain medication Dilaudid 0.5 mg IV with Zofran 4 mg IV. Patient will require antibiotics for home. Will choose doxycycline 100 mg twice daily for 10 days. Percocet tab 5/325 mg 1 or 2 every 4-6 hours as needed for pain relief. Pain should improve over the next 48 to 72 hours with antibiotic therapy. - Re-Assessments/Exams Free Text/Narrative Re-Assessment/Exam: 05/25/20 06:38 Total white count is 4.96. Auto differential shows 49% neutrophils. Hemoglobin 14.1 with hematocrit of 40.8. MCV is elevated at 104.6 due to suspect chronic use of alcohol. Platelet counts 220,000. The slide reveals 2+ macrocytes and 1+ target cells. Chemistry shows a sodium of 139 potassium of 4.0. Chloride 103 with a bicarb of 27. Anion gap is 13.0. BUN is 9 with a creatinine of 0.9. Estimated GFR is greater than 60. Glucose is 103 with a calcium of 8.9. Bilirubin is 0.6 with an AST of 50 and a normal ALT at 33. Alk phosphatase is normal at 114. C-reactive protein was elevated at 17.4 BNP elevated at 660. Total protein is 6.7 with an albumin fraction of 2.7. Patient therefore is showing some signs of systemic inflammatory process. He prefers to stay go home however rather the rather than being admitted to the [facility]. Advise close follow-up as indicated and to return to the hospital if the cellulitis of the right knee is spreading at all within the next 48 to 72 hours Departure - Departure Time of Disposition: 06:48 Disposition: Home, Self-Care 01 Condition: Fair Clinical Impression: Abrasions of multiple sites with infection Cellulitis Qualifiers: Site of cellulitis: extremity Site of cellulitis of extremity: lower extremity Laterality: right Qualified Code(s): L03.115 - Cellulitis of right lower limb - Discharge Information *PRESCRIPTION DRUG MONITORING PROGRAM REVIEWED*: Not Applicable *COPY OF PRESCRIPTION DRUG MONITORING REPORT IN PATIENT ALANA: Not Applicable Prescriptions: oxyCODONE HCl/Acetaminophen [Percocet 5-325 mg Tablet] 1 - 2 each PO Q4H PRN #24 tablet PRN Reason: pain relief. Doxycycline [Vibra-Tabs] 100 mg PO Q12HR #20 tab Instructions: Cellulitis, Adult, [id number] Referrals: Gurdeep Valadez Jr, MD [Primary Care Provider] - Forms: ED Department Discharge Additional Instructions: Evaluation in the emergency room this morning in regards to increased pain swelling and redness with increased warmth to the right knee. History of fall at home in the living room approximately 8 to 10 days ago with injury to both posterior elbows and both anterior knees. X-rays of the right knee do not reveal any fractures of the kneecap or the underlying bone and minimal arthritic change. There is calcification of the arteries behind the right knee indicating that you have something called peripheral vascular disease or poor blood supply to your leg. Usually this is on both sides. You were treated in the emergency room with intravenous pain medication Dilaudid 0.5 mg and initial dose of antibiotic Rocephin 2 g IV due to developing infection of the abrasion to the right anterior knee. Injuries to the right elbow and the left knee are healing on their own. He still have significant skin loss to the posterior aspect of your left elbow that will require daily or every other day dressing changes and topical antibiotic ointment such as bacitracin or Polysporin and cover to keep clean until healed. It would likely take another 10 to 12 days for that wound to completely heal on its own. Treatment at home is Percocet tablets 5/325 mg strength 1 or 2 every 4-6 hour as needed for pain relief in the right knee until infection comes under control which will probably be around 36 hours. Antibiotic is to be doxycycline 100 mg twice daily for the next 10 days with the first tablet to be taken when you get home after purchasing them from the drugstore. Return to the emergency room if you develop fever, chills nausea or vomiting or the infection seems to be spreading up to your groin in the next 24 to 36 hours. Sepsis Event Note (ED) - Evaluation Sepsis Screening Result: No Definite Risk
[2020-05-25] MEDS ORDERED: cefTRIAXone 2 GM in Sodium Chloride 0.9% 100 ML IV ONE (05:42)
[2020-05-25] MEDS ORDERED: Sodium Chloride 0.9% 10 ML Syringe FLUSH PRN (05:42)
[2020-05-25] MEDS ORDERED: HYDROmorphone 0.5 MG/0.5 ML Syringe IVPUSH ONE (05:43)
[2020-05-25] MEDS ORDERED: Ondansetron 4 MG/2 ML SDV IVPUSH ONE (05:43)
--- NOTE | 2020-05-27 21:17 | CR ---
Left knee: 4 views of the left knee were obtained. Note: This exam has only now been sent for final interpretation. Medial and lateral joint space narrowing is seen. Bony structures are osteopenic. No joint effusion is seen. Vascular calcification is noted. No fracture or other abnormality is appreciated. Impression: 1. Joint space narrowing, osteopenia and vascular calcification. 2. Nothing acute is appreciated. Diagnostic code #2 Study was dictated in MDT
== END 2020-05-25 06:56 | disposition home or self-care (01) ==
LOC: JD.ED 05:10
DX: S50.02XA Contusion of left elbow, initial encounter (principal); S50.01XA Contusion of right elbow, initial encounter; S80.02XA Contusion of left knee, initial encounter; S80.01XA Contusion of right knee, initial encounter; L03.115 Cellulitis of right lower limb; E78.00 Pure hypercholesterolemia, unspecified; I10 Essential (primary) hypertension; I25.2 Old myocardial infarction; J44.9 Chronic obstructive pulmonary disease, unspecified; K21.9 Gastro-esophageal reflux disease without esophagitis; M19.90 Unspecified osteoarthritis, unspecified site; Z79.82 Long term (current) use of aspirin; Z95.5 Presence of coronary angioplasty implant and graft; W01.0XXA Fall on same level from slipping, tripping and stumbling without subsequent striking against object, initial encounter
CPT/HCPCS: 36415; 73562; 80053; 83880; 85025; 86140; 96365; 96375; 99283; J0696; J1170; J2405; J7050

== ENCOUNTER 2020-05-28 08:14 | Emergency (ER) | payer MEDICARE, BC ==
[2020-05-28 08:28] VITALS: BP 169/106; PULSE 93
--- NOTE | 2020-05-28 09:24 | EDM.PDOC ---
ED HPI GENERAL MEDICAL PROBLEM - General Chief Complaint: Lower Extremity Injury/Pain Stated Complaint: RT KNEE PAIN AND SWELLING Time Seen by Provider: 05/28/20 08:41 Source of Information: Reports: Patient, RN Notes Reviewed - History of Present Illness INITIAL COMMENTS - FREE TEXT/NARRATIVE: 74 yr old male returns with R knee cellulitis. This started getting inflamed and uncomfortable about 6 days ago. Evaluated in ED 3 days ago, given rocephin 2 grams IV and started on doxycycline 100 mg bid. Not getting better, may a bit more erythematous. No fever, possible chills. No pain at rest but it is tender anteriorly and he does have some pain with motion. Walking with a limp. No other sores or lesions. No known hx MRSA. He is not diabetic. Right Knee Pain Score (Numeric/FACES): 5 - Related Data Allergies Allergy/AdvReac Type Severity Reaction Status Date / Time No Known Allergies Allergy Verified 05/28/20 08:28 Home Meds: Home Meds Enalapril Maleate 10 mg PO DAILY 06/21/14 [History] FA/Lycopene/Lut/MV,Ca,Iron,Min [Centrum] 1 tab PO DAILY 06/21/14 [History] LORazepam [Ativan] 1 mg PO BID PRN 06/21/14 [History] Meloxicam [Mobic] 15 mg PO DAILY #10 tab 06/21/14 [Rx] Metoprolol Tartrate [Lopressor] 50 mg PO BID 06/21/14 [History] Nitroglycerin [Nitrostat] 0.4 mg PO ASDIRECTED PRN 06/21/14 [History] Pantoprazole [ProTONIX] 40 mg PO DAILY 06/21/14 [History] Simvastatin [Zocor] 40 mg PO BEDTIME 06/21/14 [History] Sucralfate [Carafate] 1 gm PO BID 06/21/14 [History] amLODIPine [Norvasc] 5 mg PO DAILY 06/21/14 [History] Aspirin [Nata Chewable Aspirin] 81 mg PO DAILY 11/16/15 [History] Gluc Ochoa/Chondro Ochoa A/Vit C/Mn [Glucosamine-Chondroitin Cap] 1 tab PO DAILY 04/30/17 [History] Doxycycline [Vibra-Tabs] 100 mg PO Q12HR #20 tab 05/25/20 [Rx] Hyoscyamine Sulfate [Anaspaz] 0.125 mg PO QID PRN 05/25/20 [History] oxyCODONE HCl/Acetaminophen [Percocet 5-325 mg Tablet] 1 - 2 each PO Q4H PRN #24 tablet 05/25/20 [Rx] Past Medical History HEENT History: Reports: Other (See Below) Other HEENT History: dry eyes Cardiovascular History: Reports: Bypass, High Cholesterol, Hypertension, [place], Stents Other Cardiovascular History: Oct 15, 2012 Respiratory History: Reports: COPD Gastrointestinal History: Reports: GERD Musculoskeletal History: Reports: Arthritis Psychiatric History: Reports: Addiction Social & Family History - Family History Family Medical History: Noncontributory - Tobacco Use Smoking Status *Q: Former Smoker Used Tobacco, but Quit: Yes Month/Year Tobacco Last Used: 0 - Caffeine Use Caffeine Use: Reports: Coffee - Alcohol Use Days Per Week of Alcohol Use: 7 Number of Drinks Per Day: 10 Total Drinks Per Week: 70 - Recreational Drug Use Recreational Drug Use: No - Living Situation & Occupation Living situation: Reports: Occupation: Employed Review of Systems - Review of Systems Review Of Systems: See Below Constitutional: Reports: Chills. Denies: Fever Eyes: Reports: No Symptoms Ears: Reports: No Symptoms Nose: Reports: No Symptoms Mouth/Throat: Reports: No Symptoms Respiratory: Denies: Shortness of Breath, Cough Cardiovascular: Denies: Chest Pain GI/Abdominal: Denies: Abdominal Pain, Vomiting Musculoskeletal: Reports: Joint Pain (R ant. knee) Skin: Reports: Erythema (R ant. knee) Neurological: Reports: No Symptoms ED EXAM, GENERAL - Physical Exam Exam: See Below General Appearance: Alert, No Apparent Distress (at rest) Head: Atraumatic Neck: Supple Respiratory/Chest: No Respiratory Distress, Lungs Clear, Normal Breath Sounds Cardiovascular: Regular Rate, Rhythm Extremities: Redness (anterior R knee cap with healing dry scabbed abrasion, no drainage, mild anterior swelling, no knee joint effusion, knee nontender medially and laterally. Good ROM with some anterior discomfort. ) Neurological: Alert, Oriented, No Motor/Sensory Deficits Skin Exam: Warm, Dry, No Rash Course - Vital Signs Last Recorded V/S: Last Vital Signs Temp 96.9 F 05/28/20 08:24 Pulse 93 05/28/20 08:24 Resp 16 05/28/20 08:24 BP 169/106 H 05/28/20 08:24 Pulse Ox 99 05/28/20 08:24 - Orders/Labs/Meds Orders: Active Orders 24 hr Category Date Time Status CULTURE BLOOD [BC] Stat Lab 05/28/20 08:54 Received Labs: Laboratory Tests 05/28/20 05/28/20 Range/Units 08:54 08:54 WBC 6.83 (4.23-9.07) K/mm3 RBC 3.86 L (4.63-6.08) M/mm3 Hgb 13.8 (13.7-17.5) gm/dl Hct 41.1 (40.1-51.0) % MCV 106.5 H (79.0-92.2) fl MCH 35.8 H (25.7-32.2) pg MCHC 33.6 (32.2-35.5) g/dl RDW Std Deviation 44.0 H (35.1-43.9) fL Plt Count 283 (163-337) K/mm3 MPV 9.6 (9.4-12.3) fl Neut % (Auto) 62.2 (34.0-67.9) % Lymph % (Auto) 17.3 L (21.8-53.1) % [place] % (Auto) 18.6 H (5.3-12.2) % Eos % (Auto) 1.2 (0.8-7.0) Baso % (Auto) 0.4 (0.1-1.2) % Neut # (Auto) 4.25 (1.78-5.38) K/mm3 Lymph # (Auto) 1.18 L (1.32-3.57) K/mm3 [place] # (Auto) 1.27 H (0.30-0.82) K/mm3 Eos # (Auto) 0.08 (0.04-0.54) K/mm3 Baso # (Auto) 0.03 (0.01-0.08) K/mm3 Manual Slide Review Abnormal smear Sodium 138 (136-145) mEq/L Potassium 4.4 (3.5-5.1) mEq/L Chloride 101 (98-107) mEq/L Carbon Dioxide 25 (21-32) mEq/L Anion Gap 16.4 H (5-15) BUN 11 (7-18) mg/dL Creatinine 1.0 (0.7-1.3) mg/dL Est Cr Clr Drug Dosing TNP Estimated GFR (MDRD) > 60 (>60) mL/min BUN/Creatinine Ratio 11.0 L (14-18) Glucose 84 (83-115) mg/dL Calcium 8.8 (8.5-10.1) mg/dL Total Bilirubin 0.7 (0.2-1.0) mg/dL AST 39 H (15-37) U/L ALT 27 (16-63) U/L Alkaline Phosphatase 118 H (46-116) U/L C-Reactive Protein 13.9 H* (<1.0) mg/dL Total Protein 7.1 (6.4-8.2) g/dl Albumin 2.7 L (3.4-5.0) g/dl Globulin 4.4 gm/dL Albumin/Globulin Ratio 0.6 L (1-2) Meds: Medications Discontinued Medications Generic Name Dose Route Start Last Admin Trade Name Teja PRN Reason Stop Dose Admin Ceftriaxone Sodium Confirm 05/28/20 10:20 05/28/20 11:18 Rocephin Administered 05/28/20 10:21 Not Given Dose 2 gm IV .STK-MED ONE Ceftriaxone Sodium 2 gm/ 100 mls @ 200 mls/hr 05/28/20 09:59 05/28/20 10:25 Sodium Chloride IV 05/28/20 10:28 200 mls/hr ONETIME ONE Administration Vancomycin HCl 1.5 gm/ Sodium 500 mls @ 250 mls/hr 05/28/20 10:04 05/28/20 11:19 Chloride IV 05/28/20 10:05 250 mls/hr ONETIME ONE Administration Sodium Chloride Confirm 05/28/20 10:21 05/28/20 11:18 Normal Saline Administered 05/28/20 10:22 Not Given Dose 100 mls @ as directed .ROUTE .STK-MED ONE - Re-Assessments/Exams Free Text/Narrative Re-Assessment/Exam: 05/28/20 10:05 WBC nl, CRP about 13.8 down from over 17 three days ago. We are on diversion so hospital admission here today not an option. Pt is willing to do outpatient IV so will give rocephin 2 grams IV now, vancomycin 1.5 grams now and than set him up for rocephen 1 gram daily and vancomycin 1 gram bid for 5 days, than plan to have him go back on the doxycycline. 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 Return about 9 this evening for today's evening dose. After 5 days go back to the doxycyline 100 mg twice daily and take that until they are gone. Follow up clinic in about 5 days for recheck. Call for appointment Saturday. Return to ED as needed for high fever or if symptoms otherwise worsening. Sepsis Event Note (ED) - Evaluation Sepsis Screening Result: No Definite Risk - Focused Exam Vital Signs: Vital Signs Temp Pulse Resp BP Pulse Ox 05/28/20 08:24 96.9 F 93 16 169/106 H 99 - My Orders Last 24 Hours: My Active Orders 05/28/20 08:54 CULTURE BLOOD [BC] Stat - Assessment/Plan Last 24 Hours: My Active Orders 05/28/20 08:54 CULTURE BLOOD [BC] Stat
[2020-05-28] MEDS ORDERED: cefTRIAXone 2 GM in Sodium Chloride 0.9% 100 ML IV ONE (09:59)
[2020-05-28] MEDS ORDERED: Vancomycin 1.5 GM in Sodium Chloride 0.9% 500 ML IV ONE (10:04)
[2020-05-28] MEDS ORDERED: cefTRIAXone 2 GM AdvVial IV ONE (10:20)
[2020-05-28] MEDS ORDERED: Sodium Chloride 0.9% 100 ML ONE (10:21)
== END 2020-05-28 13:24 | disposition home or self-care (01) ==
LOC: JD.ED 08:14
DX: L03.115 Cellulitis of right lower limb (principal); I10 Essential (primary) hypertension; I25.2 Old myocardial infarction; J44.9 Chronic obstructive pulmonary disease, unspecified; K21.9 Gastro-esophageal reflux disease without esophagitis; M19.90 Unspecified osteoarthritis, unspecified site; Z87.891 Personal history of nicotine dependence; Z79.82 Long term (current) use of aspirin; Z79.899 Other long term (current) drug therapy
CPT/HCPCS: 36415; 80053; 85025; 86140; 87040; 96365; 96366; 96367; 99283; J0696; J3370; J7040; J7050

== ENCOUNTER 2021-05-26 18:27 | Emergency (ER) | payer MEDICARE, BC ==
--- NOTE | 2021-05-26 20:04 | EDM.PDOC ---
ED HPI GENERAL MEDICAL PROBLEM - General Chief Complaint: Chest Pain Stated Complaint: CHEST PAIN Time Seen by Provider: 05/26/21 19:34 - History of Present Illness INITIAL COMMENTS - FREE TEXT/NARRATIVE: Patient arrived to ED via private vehicle Onset of current symptoms was about 1500 this afternoon Reports pain in mid chest No dyspnea, dizziness, nausea, vomiting Had cardiac stent placed about 1 month ago at [facility] Has had occurrence of similar pain since then Seen 1 week ago by cardiology provider, told possible GERD Patient admits similar pain also occurring prior to stent procedure, for past year, approximately twice per week Symptoms often associated with activity/exertion, but have occurred also when watching TV Patient states he has been sober x 1 year, lives alone and gets anxious Reports past history of [place] with stent about 12 years ago Had CABG 2 years later Chest Pain Score (Numeric/FACES): 3 - Related Data Allergies Allergy/AdvReac Type Severity Reaction Status Date / Time No Known Allergies Allergy Verified 05/26/21 18:46 Home Meds: Home Meds Enalapril Maleate 10 mg PO DAILY 06/21/14 [History] FA/Lycopene/Lut/MV,Ca,Iron,Min [Centrum] 1 tab PO DAILY 06/21/14 [History] LORazepam [Ativan] 1 mg PO BID PRN 06/21/14 [History] Meloxicam [Mobic] 15 mg PO DAILY #10 tab 06/21/14 [Rx] Metoprolol Tartrate [Lopressor] 50 mg PO BID 06/21/14 [History] Nitroglycerin [Nitrostat] 0.4 mg PO ASDIRECTED PRN 06/21/14 [History] Pantoprazole [ProTONIX] 40 mg PO DAILY 06/21/14 [History] Simvastatin [Zocor] 40 mg PO BEDTIME 06/21/14 [History] Sucralfate [Carafate] 1 gm PO BID 06/21/14 [History] amLODIPine [Norvasc] 5 mg PO DAILY 06/21/14 [History] Aspirin [Nata Chewable Aspirin] 81 mg PO DAILY 11/16/15 [History] Gluc Ochoa/Chondro Ochoa A/Vit C/Mn [Glucosamine-Chondroitin Cap] 1 tab PO DAILY 04/30/17 [History] Hyoscyamine Sulfate [Anaspaz] 0.125 mg PO QID PRN 05/25/20 [History] Ascorbic Acid [Vitamin C] 500 mg PO DAILY 05/26/21 [History] Cholecalciferol (Vitamin D3) [Vitamin D3] 50 mcg PO DAILY 05/26/21 [History] Fish Oil/DHA/EPA [Fish Oil 1,200 MG] 1 each PO DAILY 05/26/21 [History] Potassium Gluconate [Potassium] 99 mg PO DAILY 05/26/21 [History] Past Medical History HEENT History: Reports: Other (See Below) Other HEENT History: dry eyes Cardiovascular History: Reports: Bypass, High Cholesterol, Hypertension, [place], Stents Other Cardiovascular History: Oct 15, 2012 Respiratory History: Reports: COPD Gastrointestinal History: Reports: GERD Musculoskeletal History: Reports: Arthritis Psychiatric History: Reports: Addiction Social & Family History - Family History Family Medical History: No Pertinent Family History - Tobacco Use Tobacco Use Status *Q: Never Tobacco User - Caffeine Use Caffeine Use: Reports: Coffee - Recreational Drug Use Recreational Drug Use: No - Living Situation & Occupation Living situation: Reports: Occupation: Employed ED ROS GENERAL - Review of Systems Review Of Systems: See Below Free Text/Narrative/Comment: Constitutional - no fever Eyes - no eye pain; no visual disturbance ENT - no rhinorrhea; no congestion; no epistaxis Cardiovascular - chest pain Respiratory - no shortness of breath; no cough Gastrointestinal - no abdominal pain; no nausea; no vomiting; no diarrhea Genitourinary - no dysuria Musculoskeletal - no neck pain; no back pain; no extremity injury Neurological - no headache; no speech disturbance; no weakness ED EXAM, GENERAL - Physical Exam Exam: See Below Free Text/Narrative:: Constitutional - awake; alert; no acute distress Head - no facial swelling or weakness Eyes - extra ocular motion intact; conjunctiva normal ENT - no nasal deformity; no epistaxis; normal phonation; mucus membranes moist; Neck - no swelling Respiratory - normal respiratory effort; no crackles or wheezing; no stridor Cardiovascular - regular rhythm; normal rate; S1; S2; grade 1/6 systolic murmur GI/Abdomen - normal bowel sounds; soft; no tenderness; no rebound; no guarding; no mass Musculoskeletal - grossly normal strength and motion; no swelling or deformity Skin - warm; dry Neurologic - normal speech; no weakness Psychiatric - normal mood and affect; memory and attention normal #1 Interpretation EKG Date: 05/26/21 Time: 18:32 Rhythm: NSR Rate (Beats/Min): 83 (PVCs) [place]: LAD-Left [place] Deviation P-Wave: Present QRS: RBBB ST-T: Other (Nonspecific ST-T wave abnormality) EKG Interpretation Comments: When compared with EKG 04/30/2017, minor changes in ST-T wave abnormality, questionable significance; PVCs now present When compared with EKG 03/29/21 from [facility], PVCs now present, no significant morphologic changes Course - Vital Signs Text/Narrative:: . Considered etiologies included: chest pain, chest wall pain, ACS/angina, GERD Symptoms and examination were discussed Investigations were initiated Records were requested from [facility] At re-evaluation patient stated he felt better Lab results were unremarkable There were no findings for acute coronary syndrome Primary care and cardiology follow-up was advised Patient was felt to be stable for outpatient follow-up Return precautions were provided Last Recorded V/S: Last Vital Signs Temp 36.8 C 05/26/21 18:42 Pulse 69 05/27/21 00:30 Resp 16 05/27/21 00:30 BP 124/71 05/27/21 00:30 Pulse Ox 95 05/27/21 00:30 - Orders/Labs/Meds Labs: Laboratory Tests 05/26/21 05/26/21 05/26/21 Range/Units 18:35 18:35 18:35 WBC 7.78 (4.23-9.07) K/mm3 RBC 4.83 (4.63-6.08) M/mm3 Hgb 14.1 (13.7-17.5) gm/dl Hct 43.6 (40.1-51.0) % MCV 90.3 D (79.0-92.2) fl MCH 29.2 (25.7-32.2) pg MCHC 32.3 (32.2-35.5) g/dl RDW Std Deviation 45.1 H (35.1-43.9) fL Plt Count 242 (163-337) K/mm3 MPV 10.6 (9.4-12.3) fl Neut % (Auto) 42.0 (34.0-67.9) % Lymph % (Auto) 37.5 (21.8-53.1) % [place] % (Auto) 17.1 H (5.3-12.2) % Eos % (Auto) 3.0 (0.8-7.0) Baso % (Auto) 0.4 (0.1-1.2) % Neut # (Auto) 3.27 (1.78-5.38) K/mm3 Lymph # (Auto) 2.92 (1.32-3.57) K/mm3 [place] # (Auto) 1.33 H (0.30-0.82) K/mm3 Eos # (Auto) 0.23 (0.04-0.54) K/mm3 Baso # (Auto) 0.03 (0.01-0.08) K/mm3 PT (9.7-12.0) SECONDS INR APTT (21.7-31.4) SECONDS CK-MB (CK-2) 2.3 (0-3.6) ng/ml Troponin I < 0.017 (0.00-0.056) ng/mL 05/26/21 Range/Units 18:35 WBC (4.23-9.07) K/mm3 RBC (4.63-6.08) M/mm3 Hgb (13.7-17.5) gm/dl Hct (40.1-51.0) % MCV (79.0-92.2) fl MCH (25.7-32.2) pg MCHC (32.2-35.5) g/dl RDW Std Deviation (35.1-43.9) fL Plt Count (163-337) K/mm3 MPV (9.4-12.3) fl Neut % (Auto) (34.0-67.9) % Lymph % (Auto) (21.8-53.1) % [place] % (Auto) (5.3-12.2) % Eos % (Auto) (0.8-7.0) Baso % (Auto) (0.1-1.2) % Neut # (Auto) (1.78-5.38) K/mm3 Lymph # (Auto) (1.32-3.57) K/mm3 [place] # (Auto) (0.30-0.82) K/mm3 Eos # (Auto) (0.04-0.54) K/mm3 Baso # (Auto) (0.01-0.08) K/mm3 PT 10.9 (9.7-12.0) SECONDS INR 1.02 APTT 30.8 (21.7-31.4) SECONDS CK-MB (CK-2) (0-3.6) ng/ml Troponin I (0.00-0.056) ng/mL Departure - Departure Time of Disposition: 00:34 Disposition: Home, Self-Care 01 Clinical Impression: Chest pain - Discharge Information *PRESCRIPTION DRUG MONITORING PROGRAM REVIEWED*: No *COPY OF PRESCRIPTION DRUG MONITORING REPORT IN PATIENT ALANA: Not Applicable Instructions: Nonspecific Chest Pain, Adult Referrals: Alex Rivera MD [Primary Care Provider] - Forms: ED Department Discharge Additional Instructions: Return if condition worsens May resume general activity and regular diet as tolerated Continue usual medications Follow-up with primary care provider as scheduled on 05/30/2021 Sepsis Event Note (ED) - Evaluation Sepsis Screening Result: No Definite Risk
[2021-05-27 01:58] VITALS: BP 124/71; PULSE 69
--- NOTE | 2021-05-27 10:03 | CR ---
Chest: Portable view of the chest was obtained. Comparison: Prior chest x-ray of 04/30/17. Heart size and mediastinum are within normal limits. Previous sternotomy is noted presumably for previous CABG. Lungs are clear with no acute parenchymal change. Bony structure shows nothing acute. Impression: 1. Findings as noted above. 2. Nothing acute is appreciated on portable chest x-ray. Diagnostic code #2
== END 2021-05-27 00:49 | disposition home or self-care (01) ==
LOC: JD.ED 18:27
DX: R07.9 Chest pain, unspecified (principal); E78.00 Pure hypercholesterolemia, unspecified; I10 Essential (primary) hypertension; I25.2 Old myocardial infarction; J44.9 Chronic obstructive pulmonary disease, unspecified; K21.9 Gastro-esophageal reflux disease without esophagitis; Z95.1 Presence of aortocoronary bypass graft; Z79.82 Long term (current) use of aspirin; Z79.899 Other long term (current) drug therapy
CPT/HCPCS: 36415; 71045; 71045-26; 82553; 84484; 85025; 85610; 85730; 93005; 93010; 99283; 99285-25